=== PATIENT | female | born 2000 | race Two or more races ===

== ENCOUNTER 2021-01-17 19:11 | Emergency (ER) | payer SELFPAY ==
[~2021-01-17] VITALS: Ht 160 cm; Wt 56.7 kg
[2021-01-17 21:00] VITALS: BP 118/81
== END 2021-01-17 22:21 | disposition home or self-care (01) ==
LOC: ER 19:11
DX: S46.912A Strain of unspecified muscle, fascia and tendon at shoulder and upper arm level, left arm, initial encounter (principal); V49.9XXA Car occupant (driver) (passenger) injured in unspecified traffic accident, initial encounter; Y93.89 Activity, other specified; Y92.89 Other specified places as the place of occurrence of the external cause; Y99.8 Other external cause status
CPT/HCPCS: 73030